=== PATIENT | male | born 1990 | race Caucasian/White ===

== ENCOUNTER 2017-07-07 08:24 | Emergency (ER) | payer BC ==
[~2017-07-07] VITALS: Ht 182.9 cm; Wt 117.9 kg
[~2017-07-07 08:24] MED LIST: BACTRIM DS TAB1 EACH PO; KEFLEX500 MG PO
[2017-07-07] MEDS ORDERED: ZOFRAN ODT4 MG PO (12:03)
[2017-07-07] MEDS ORDERED: PRILOSEC OTC20 MG PO (12:03)
[2017-07-07] MEDS ORDERED: DICYCLOMINE HCL10 MG PO (12:03)
[2017-11-16] MEDS ORDERED: COREG12.5 MG PO (09:51)
[2017-11-16] MEDS ORDERED: FLOMAX0.4 MG PO (09:51)
== END 2017-07-07 12:15 | disposition home or self-care (01) ==
LOC: ED 08:24
DX: K58.0 Irritable bowel syndrome with diarrhea (principal); Z88.0 Allergy status to penicillin
CPT/HCPCS: 80053; 83690; 85025; 96361; 96374; 99283; J2405; J7030